=== PATIENT | male | born 1970 | race Two or more races ===

== ENCOUNTER 2022-03-20 19:44 | Emergency (ER) | payer SELFPAY | END 2022-03-20 20:32 | LOC: JD.ED 19:44 | DX: F10.920 Alcohol use, unspecified with intoxication, uncomplicated (principal) | CPT/HCPCS: 99283 ==

== ENCOUNTER 2024-08-17 14:41 | Emergency (ER) | payer SELFPAY | END 2024-08-17 15:08 | disposition home or self-care (01) | LOC: JD.ED 14:41 | DX: Z02.89 Encounter for other administrative examinations (principal); Z88.0 Allergy status to penicillin; F10.929 Alcohol use, unspecified with intoxication, unspecified | CPT/HCPCS: 99282; 99283 ==

== ENCOUNTER 2024-09-17 10:11 | Emergency (ER) | payer BC, OTHER ==
[2024-09-17 10:38] LABS: BASOPHILS ABSOLUTE AUTO 0.1 K/mm3 (0.0-0.2); BASOPHILS PERCENT AUTO 0.8 % (0.0-1.0); EOSINOPHILS ABSOLUTE AUTO 0.1 K/mm3 (0.0-0.4); EOSINOPHILS PERCENT AUTO 0.7 % (0.0-6.0); HEMATOCRIT 44.5 % (42.0-52.0); HEMOGLOBIN 16.2 gm/dl (14.0-18.0); IMMATURE GRAN ABSOLUTE AUTO 0.03 K/mm3 (0.00-0.05); IMMATURE GRAN PERCENT AUTO 0.4 % (0.0-0.4); LYMPHOCYTES ABSOLUTE AUTO 2.2 K/mm3 (1.0-4.8); LYMPHOCYTES PERCENT AUTO 29.3 % (24.0-44.0); MEAN CORPUSCULAR HGB CONC 36.4 g/dl (32.0-36.0); MEAN CORPUSCULAR VOLUME 93.3 fl (83.0-99.0); MEAN PLATELET VOLUME 9.1 fl (9.4-12.4); MONOCYTES ABSOLUTE AUTO 0.7 K/mm3 (0.0-0.8); NEUTROPHILS ABSOLUTE AUTO 4.5 K/mm3 (1.8-7.7); NEUTROPHILS PERCENT AUTO 59.8 % (41.0-71.0); PLATELET COUNT,PLT 245 K/mm3 (150-400); RED BLOOD CELL COUNT 4.77 M/mm3 (4.52-5.90); WHITE BLOOD CELL COUNT,WBC 7.57 K/mm3 (3.9-11.3)
[2024-09-17 10:58] LABS: INR 0.99; PROTHROMBIN TIME 10.5 SECONDS (9.7-12.0)
[2024-09-17 11:09] LABS: A/G RATIO 0.7 (1-2); ALBUMIN 3.2 g/dl (3.4-5.0); ANION GAP 16.5 (5-15); BILIRUBIN TOTAL 0.7 mg/dL (0.2-1.0); CALCIUM 8.3 mg/dL (8.5-10.1); EST CRCL DRUG DOSING (CG) 76.21 mL/min; ETHANOL BLOOD MEDICAL 0.04 gm% (0.00); MAGNESIUM 1.5 mg/dL (1.8-2.4); POTASSIUM,K 3.5 mEq/L (3.5-5.1); PROTEIN TOTAL,TP 8.1 g/dl (6.4-8.2); TSH 8.442 uIU/mL (0.358-3.74)
[2024-09-17] MEDS: ALPRAZolam 1 MG Tab PO ONE ×2 (11:31→16:06)
[2024-09-17] MEDS: Aspirin 81 MG Tab.Chew PO ONE (11:31)
[2024-09-17 11:49] LABS: T4 FREE 0.85 ng/dL (0.76-1.46)
[2024-09-17] MEDS: Magnesium Sulfate 2 GM/50 mL 2 GM/50 ML BAG IV ONE (14:44)
[2024-09-17 14:51] LABS: BARBITURATE SCREEN,URINE NEGATIVE (CUTOFF=200); BENZODIAZEPINES SCREEN,URINE PRESUMPTIVE POSITIVE (CUTOFF=150); BUPRENORPHINE SCREEN,URINE NEGATIVE (CUTOFF=10); METHADONE SCREEN, URINE NEGATIVE (CUT0FF=200); METHAMPHETAMINES SCREEN, URINE PRESUMPTIVE POSITIVE (CUTOFF=500); OXYCODONE SCREEN,URINE NEGATIVE (CUT0FF=100); THC SCREEN,URINE 20 NG/ML PRESUMPTIVE POSITIVE (CUTOFF=50)
[2024-09-17 15:04] LABS: AMPHETAMINES SCREEN, URINE NEGATIVE (CUTOFF=500)
[2024-09-17] MEDS: Metoprolol Succinate 50 MG Tab.ER PO ONE (16:06)
== END 2024-09-17 18:30 | disposition home or self-care (01) ==
LOC: JD.ED 10:11
DX: F43.9 Reaction to severe stress, unspecified (principal); F41.9 Anxiety disorder, unspecified; Z88.0 Allergy status to penicillin; Z79.899 Other long term (current) drug therapy
CPT/HCPCS: 36415; 71045; 80053; 80306; 80307; 82550; 83690; 83735; 84439; 84443; 84484; 85025; 85610; 93005; 96365; 99285; A9270; J3475; 93010; 99284